=== PATIENT | male | born 1960 | race African-American/Black ===

== ENCOUNTER 2018-03-30 18:41 | Emergency (ER) | payer OTHER ==
[~2018-03-30] VITALS: Ht 177.8 cm; Wt 86.2 kg
[2018-03-30] MEDS ORDERED: MECLIZINE HCL25 MG PO (19:54)
[2018-03-30 20:08] VITALS: BP 139/79
--- NOTE | 2018-03-31 07:58 | EKG ---
[facility] [place] [address] ELECTROCARDIOGRAM REPORT Name: MOO TALLEY Room #: DEP MILA Reese#: [id number] Admission: 03/30/18 Attend Phys: Discharge: 03/30/18 Date of : 60 Report #: [id number] THIS REPORT FOR: //name// [facility] ED Test Date: 2018-03-30 Test Time: 19:12:41 Pat Name: MOO TALLEY Department: Room: Gender: Biological Science Technician: keyonna : 1960 Requested By: Guy Dorsey Order Number: [id number] MD: Kevin Santacruz Measurements Intervals [place] Rate: 69 P: 45 ME: 145 QRS: -18 QRSD: 91 T: 222 QT: 451 QTc: 484 Interpretive Statements Sinus rhythm Probable left atrial enlargement LVH with secondary repolarization abnormality Borderline prolonged QT interval No previous ECG available for comparison Electronically Signed On 03-31-2018 7:58:33 FINANCIAL SERVICE REPRESENTATIVE by Kevin Santacruz [email or web address] <ELECTRONICALLY SIGNED> By: Kevin Santacruz MD, [facility] 03/31/18 [id number] Kevin Santacruz MD, FACC /EPI
== END 2018-03-30 20:09 | disposition home or self-care (01) ==
LOC: ER 18:41
DX: J01.80 Other acute sinusitis (principal); B97.89 Other viral agents as the cause of diseases classified elsewhere; I11.0 Hypertensive heart disease with heart failure; I50.9 Heart failure, unspecified; E78.00 Pure hypercholesterolemia, unspecified